=== PATIENT | male | born 1985 | race African-American/Black ===

== ENCOUNTER 2025-05-06 08:34 | Emergency (ER) | payer OTHER ==
[~2025-05-06] VITALS: Ht 170.2 cm; Wt 95.5 kg
[2025-05-06 08:40] VITALS: BP 121/90; PULSE 57; TEMP 98; O2SAT 96
[2025-05-06 08:47] VITALS: RESP 16
[2025-05-06] MEDS: proparacaine 0.5% ophthalmic drops 15ml EACHEYE ONE (09:03)
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
--- NOTE | 2025-05-06 10:51 | RADIOLOGY REPORT ---
CT CT FACIAL BONES/SOFT TISSUE INDICATION: right eye trauma post acute EXAM DATE: 05/06/2025 09:56 AM COMPARISON: None RADIATION DOSE: CTDIvol: 54 mGy, DLP: 1038 mGy*cm PROCEDURE: Using the CT scanner, contiguous noncontrast scans were obtained from above the orbital ri ms to below the mandible. Coronal and sagittal reformatted images were then generated. All CT scans at this medical facility are performed using dose modulation techniques as appropriate t o a performed exam including the following: Automated exposure control was utilized; adjustment of th e MA and/or KV according to patient size; and use of iterative reconstruction technique. FINDINGS: Nondisplaced fracture of the left anterior maxillary sinus. The facial bones, including the orbits and paranasal sinuses are otherwise intact without evidence of fracture. The paranasal sinus es, mastoid air cells and middle ear cavities are normally aerated. The orbital contents are normal. The soft tissues of the face are unremarkable. Prominent cervical lymph nodes are likely reactive. IMPRESSION: Nondisplaced fracture of the left anterior maxillary sinus.
== END 2025-05-06 11:23 ==
LOC: EEVIPCON 08:34 → ER 08:34
DX: S02.40DA Maxillary fracture, left side, initial encounter for closed fracture (principal); S05.91XA Unspecified injury of right eye and orbit, initial encounter; H57.04 Mydriasis; X58.XXXA Exposure to other specified factors, initial encounter; Y93.89 Activity, other specified; Y92.89 Other specified places as the place of occurrence of the external cause; Y99.8 Other external cause status
CPT/HCPCS: 42809; 70486; 99284